=== PATIENT | female | born 1945 | race Caucasian/White ===

== ENCOUNTER → 2018-02-13 | Outpatient (CLI) | payer OTHER ==
--- NOTE | 2018-02-13 12:53 | Diagnostic Imaging Report ---
PROCEDURE:US RETROPERITONEAL ( KIDNEY ). COMPARISON:None. INDICATIONS:UTI TECHNIQUE: Ramos scale and color Doppler ultrasound kidneys FINDINGS: Right: 10.8 x 4.6 x 5 cm. Cortical thickness 1.4 cm. Left: 9.4 x 4.5 x 4.6 cm. Cortical thickness 1.4 cm. Both kidneys are normal. A left ureteral jet is present. No conspicuous right ureteral jet. No right hydronephrosis or other abnormality to suggest obstruction. Survey views of the urinary bladder are normal. CONCLUSION: While there is no documentation of right ureteral patency by the presence of a ureteral jet, there is no evidence of obstruction. Study otherwise normal. Dictated by: Jose Miller M.D. on 02/13/2018 at 12:54 Electronically approved by: Jose Miller M.D. on 02/13/2018 at 12:54
== END ==
LOC: US 10:07
PROVIDERS: ATTEND Urology
DX: N39.0 Urinary tract infection, site not specified (principal)
CPT/HCPCS: 76770

== ENCOUNTER → 2018-06-02 | Outpatient (CLI) | payer OTHER ==
[~2018-06-02] MED LIST: REGADENOSON 0.4 MG/5 ML SYR IV ONE
--- NOTE | 2018-06-03 14:06 | Cardiology Report ---
DATE OF STUDY: June 02, 2018 LEXISCAN NUCLEAR STRESS TEST INDICATIONS: Chest pain. DESCRIPTION OF PROCEDURE: After informed consent, patient was brought to the stress lab. She was given 10 millicuries of technetium 99 Myoview and myocardial perfusion SPECT images were obtained in the horizontal long-axis, short-axis and vertical long-axis views. Subsequently, the patient was given 0.4 mg Lexiscan over 10 seconds. The patient was given 32 mCi of technetium 99 Myoview intravenously and myocardial perfusion SPECT images were obtained in the horizontal long-axis, short-axis and vertical long-axis views. Gated images were also obtained. Patient tolerated the procedure without any complications. REPORT: Baseline EKG showed sinus rhythm at 72 beats per minute, normal axis, normal intervals, nonspecific ST-T changes. PARAMETERS 1. Resting heart rate is 74 beats. 2. Maximum heart rate 103 beats per minute. 3. Resting blood pressure 132/87 mmHg. 4. Maximum blood pressure 141/74 mmHg. REASON FOR TERMINATION: Endpoint attained. INTERPRETATION 1. Negative chest pain. 2. Negative for arrhythmias. 3. Blood pressure response consistent with Lexiscan. 4. Significant ST-T changes seen during Lexiscan infusion compared to baseline. 5. Analysis of SPECT images reveals uniform radioisotope uptake in all segments of myocardium without any significant perfusion defects. CONCLUSIONS: 1. No evidence of significant ischemia or infarction on this study. 2. Normal wall motion abnormalities. 3. Hypo-contracted left ventricle. 4. Overall ejection fraction is 82%. Job#: [id number]
== END ==
LOC: NM 08:23
DX: I25.10 Atherosclerotic heart disease of native coronary artery without angina pectoris (principal)
CPT/HCPCS: 78452; 93017; A9502